=== PATIENT | male | born 1985 | race Caucasian/White ===

== ENCOUNTER 2021-05-17 08:00 | Outpatient (CLI) | payer BC ==
[2021-05-17 14:15] LABS: FECAL OCCULT BLOOD (FIT) NEGATIVE (NEGATIVE)
== END 2021-05-17 23:59 | disposition home or self-care (01) ==
LOC: LAB.S 08:00
PROVIDERS: ATTEND Physician Assistant
DX: R19.7 Diarrhea, unspecified (principal)
CPT/HCPCS: 81599; 82274; 87045; 87046; 87177; 87209; 87427; 87493

== ENCOUNTER 2021-05-17 10:47 | Outpatient (CLI) | payer BC ==
[2021-05-17 11:24] LABS: BASOPHILS # (AUTO) 0.1 10^3/uL (0.0-0.1); EOSINOPHILS # (AUTO) 0.1 10^3/uL (0.0-0.7); EOSINOPHILS % (AUTO) 1.8 %; HCT - HEMATOCRIT 47.2 % (42.0-52.0); LYMPHOCYTES # (AUTO) 2.3 10^3/uL (1.5-3.5); LYMPHOCYTES % (AUTO) 36.6 %; MEAN CORPUSCULAR HEMOGLOBIN 29.7 pg (27.0-31.0); MEAN CORPUSCULAR HGB CONC 33.9 g/dL (32.0-36.0); MEAN CORPUSCULAR VOLUME 87.6 fL (80.0-94.0); MONOCYTES # (AUTO) 0.5 10^3/uL (0.0-1.0); MONOCYTES % (AUTO) 7.4 %; NEUTROPHILS # (AUTO) 3.3 10^3/uL (1.5-6.6); NEUTROPHILS % (AUTO) 52.9 %; PLT - PLATELET COUNT 249 10^3/uL (130-450); RED BLOOD COUNT 5.39 10^6/uL (4.70-6.10); RED CELL DISTRIBUTION WIDTH 12.5 % (12.0-15.0); WHITE BLOOD COUNT 6.2 x10^3/uL (4.8-10.8)
[2021-05-17 11:41] LABS: ALBUMIN 4.4 g/dL (3.2-5.5); ALBUMIN/GLOBULIN RATIO 1.5 (1.0-2.2); ALKALINE PHOSPHATASE 55 IU/L (42-121); ALT ALANINE AMINOTRANSFERASE 55 IU/L (10-60); AST ASPARTATE AMINOTRANSFERASE 29 IU/L (10-42); BILIRUBIN,TOTAL 0.8 mg/dL (0.2-1.0); BUN - BLOOD UREA NITROGEN 14 mg/dL (6-20); CARBON DIOXIDE - CO2 26 mmol/L (21-32); CHLORIDE 102 mmol/L (101-111); CHOL/HDL RATIO 5.5 (<5.0); CHOLESTEROL 216 mg/dL; CREATININE 0.9 mg/dL (0.6-1.2); GFR - MDRD 97 (>89); GLUCOSE 100 mg/dL (70-100); HDL CHOLESTEROL 39 mg/dL; LDL CHOLESTEROL,CALCULATED 119 mg/dL; LDL/HDL RATIO 3.1 (<3.6); POTASSIUM 3.9 mmol/L (3.5-5.0); SODIUM 138 mmol/L (135-145); TOTAL PROTEIN 7.4 g/dL (6.7-8.2); TRIGLYCERIDES 291 mg/dL; VLDL CHOLESTEROL 58 mg/dL
[2021-05-17 14:18] LABS: ESTIMATED AVERAGE GLUCOSE 103 mg/dL (70-100); HEMOGLOBIN A1c% 5.2 % (4.27-6.07)
== END 2021-05-17 10:48 | disposition home or self-care (01) ==
LOC: LAB 10:47
PROVIDERS: ATTEND Physician Assistant
DX: E29.1 Testicular hypofunction (principal); E55.9 Vitamin D deficiency, unspecified; R89.9 Unspecified abnormal finding in specimens from other organs, systems and tissues; R19.7 Diarrhea, unspecified; F33.40 Major depressive disorder, recurrent, in remission, unspecified; Z79.899 Other long term (current) drug therapy
CPT/HCPCS: 36415; 80053; 80061; 82306; 83036; 83721; 85025

== ENCOUNTER 2021-05-31 11:07 | Outpatient (CLI) | payer BC | END 2021-05-31 11:08 | disposition home or self-care (01) | LOC: LAB 11:07 | PROVIDERS: ATTEND Physician Assistant | DX: E29.1 Testicular hypofunction (principal) | CPT/HCPCS: 36415; 84403 ==

== ENCOUNTER 2022-11-11 18:45 | Emergency (ER) | payer BC ==
--- OUTSIDE RECORDS SUMMARY | 2022-11-11 19:27 | EXTERNAL MEDICAL SUMMARY RPT | Continuity of Care Document ---
:1985 Author Organization [facility] Address [address] [place] [address] Phone Care Team Providers Name Role Phone Robert Navarrete Unavailable Unavailable Allergies No information. Encounters No information. Functional Status No information. Immunizations No information. Medications date description facility 2022-10-14 00:00 allopurinol 100 mg oral tablet [facility] [place] Problems No information. Procedures No information. Results/Labs No information. Social History No information. Vital Signs No information.
--- NOTE | 2022-11-11 21:35 | ED Physician Documentation ---
PD HPI UPPER EXT INJURY - Stated complaint Stated Complaint: LT HAND LAC - Chief complaint Chief Complaint: Laceration - History obtained from History obtained from: Patient - History of Present Illness Location: Left, Finger Type of injury: Laceration Where injury occurred: Home Timing - onset: Enter time (18:30) Timing - details: Abrupt onset Associated symptoms: No: Weakness, Numbness, Tingling, Swelling Recently seen: Not recently seen - Additonal information Additional information: presents with lacerations to his left thumb and pointer finger, sustained at home at approximately 6:30 PM today when he was splitting bamboo with a machete . He is left-hand dominant. He is UTD on tetanus (within 5 years). HPI from patient. Review of Systems Skin: reports: Laceration (s) Neurologic: denies: Focal weakness, Numbness PD PAST MEDICAL HISTORY - Past Medical History Past Medical History: No - Present Medications Home Medications: Ambulatory Orders Medication Instructions Recorded Confirmed No Known Home Medications 11/11/22 11/11/22 - Allergies Allergies/Adverse Reactions: Allergies Allergy/AdvReac Type Severity Reaction Status Date / Time No Known Drug Allergies Allergy Verified 11/11/22 19:03 - Living Situation Living Arrangement: reports: At home PD ED PE NORMAL - Vitals Vital signs reviewed: Yes - General General: Alert and oriented X 3, No acute distress - Neuro Neuro: No motor deficit (FROM and strength left thumb and left pointer finger, flexion and extension including with isolation of MCP, PIP, and DIP joints .), No sensory deficit PD ED PE EXPANDED - Extremities ALLIE UE/Hands Visual: 1 - laceration (1 cm length with adipose tissue visualized) 2 - laceration (1 cm length) Results - Vitals Vitals: Oxygen O2 Source Room air Procedures - Laceration (location) Finger left Length in cm: 1 (left thumb) Wound type: Linear, Into subcut fat, Clean Neurovascular status: Sensory intact, Motor intact, Vascular intact Tendon involvement: Tendon intact Anesthesia: Lidocaine 1% Wound preparation: Chlorhexadine, Irrigated copiously NS, Wound explored Skin layer closure: Nylon, Size #-0 - enter number (5-0) Other: Patient tolerated well, No complications, Neurovascular intact, Tetanus UTD Finger left Dorsal Length in cm: 1 (left pointer finger, 1 cm length) Wound type: Linear, Into subcut fat Neurovascular status: Sensory intact, Motor intact, Vascular intact Tendon involvement: Tendon intact Anesthesia: Lidocaine 1% Wound preparation: Chlorhexadine, Irrigated copiously NS Skin layer closure: Dermabond Other: Patient tolerated well, No complications, Neurovascular intact, Tetanus UTD PD Medical Decision Making - ED course Complexity details: reviewed results, re-evaluated patient, considered di fferential, d/w patient Departure - Departure Disposition: Home, Self Care Clinical Impression: Laceration Condition: Good Instructions: ED Laceration Ext Skin Glue, ED Laceration Ext Sutr Stap Tape Comments: Follow-up with your primary care provider in 7 to 10 days for removal of the stitches in the thumb. If you do not have a primary care provider or cannot arrange the appointment in that timeframe, you can follow-up in an urgent care or walk-in clinic or else return to the emergency department for removal of the stitches. Use the splint on your pointer finger for the next week to keep the finger still; this is to minimize the tension on the wound and minimize the likelihood of the wound opening back up. Discharge Date/Time: 11/12/22 01:43
[2022-11-11] MEDS ORDERED: LIDOCAINE 1% 2 ML VIAL SUBQ STA (22:08)
[2022-11-11] MEDS ORDERED: lidocaine 1% 20 ML MDV ONE (22:24)
[2022-11-12] MEDS ORDERED: BACITRACIN ZINC OINT 1 PACKET TOP STA ×2 (01:29→01:30)
[2022-11-12 01:43] VITALS: BP 133/64
== END 2022-11-12 01:43 | disposition home or self-care (01) ==
LOC: ED 18:45
DX: S61.012A Laceration without foreign body of left thumb without damage to nail, initial encounter (principal); S61.211A Laceration without foreign body of left index finger without damage to nail, initial encounter; W26.0XXA Contact with knife, initial encounter
CPT/HCPCS: 12001; 99282; A9270

== ENCOUNTER 2023-11-02 09:34 | Outpatient (CLI) | payer BC, OTHER ==
--- NOTE | 2023-11-03 08:01 | XRAY Report ---
PROCEDURE: Knee 3 View BILAT INDICATIONS: FALL ON AND FROM LADDER TECHNIQUE: 4 views of the knee(s) were acquired. COMPARISON: None. FINDINGS: Bones: There is a comminuted fracture in the lateral aspect of the patella. Fractures or dislocation s. No suspicious bony lesions. Soft tissues: Small knee joint effusion. No suspicious soft tissue calcifications or masses. IMPRESSION: 1. Comminuted patellar fracture. 2. Small knee joint effusion. Reviewed by: Ender Keith MD on 11/03/2023 7:59 AM PST Approved by: Ender Keith MD on 11/03/2023 7:59 AM [facility] Station ID: [id number]
--- NOTE | 2023-11-03 08:05 | XRAY Report ---
PROCEDURE: Tib/Fib RT INDICATIONS: FALL ON AND FROM LADDER TECHNIQUE: 2 views of the tibia and fibula were acquired. COMPARISON: None. FINDINGS: Bones: No fractures or dislocations. No suspicious bony lesions. Soft tissues: No suspicious soft tissue calcifications or masses. IMPRESSION: No acute bony abnormality. Reviewed by: Ender Keith MD on 11/03/2023 8:03 AM [facility] Approved by: Ender Keith MD on 11/03/2023 8:03 AM PST Station ID: [id number]
== END 2023-11-02 23:59 | disposition home or self-care (01) ==
LOC: DI.N 09:34
PROVIDERS: ATTEND Physician Assistant Medical
DX: S80.12XA Contusion of left lower leg, initial encounter (principal); S80.11XA Contusion of right lower leg, initial encounter; S82.04 Comminuted fracture of patella

== ENCOUNTER 2023-12-11 13:00 | Outpatient (CLI) | payer BC, OTHER ==
--- NOTE | 2023-12-11 15:56 | XRAY Report ---
PROCEDURE: Knee 3 View RT INDICATIONS: RIGHT PATELLA FRACTURE TECHNIQUE: 3 views of the knee(s) were acquired. COMPARISON: 11/02/2023 FINDINGS: Bones: Again noted is comminuted fractures involving lateral aspect of patella with slight lateral d isplacement at fracture site. No new fracture or dislocation. No patella subluxation. No suspicious b isa lesions. Soft tissues: Small knee joint effusion. No suspicious soft tissue calcifications or masses. IMPRESSION: Stable appearance of comminuted and minimally displaced fracture involving lateral aspect of patella. No new fracture or dislocation. Small joint effusion. Reviewed by: Carlyle Paz MD on 12/11/2023 3:55 PM PST Approved by: Carlyle Paz MD on 12/11/2023 3:55 PM PST Station ID: [id number]
== END 2023-12-11 23:59 | disposition home or self-care (01) ==
LOC: DI.WOS 13:00
PROVIDERS: ATTEND Orthopaedic Surgery
DX: S82.041D Displaced comminuted fracture of right patella, subsequent encounter for closed fracture with routine healing (principal); M25.461 Effusion, right knee

== ENCOUNTER 2024-01-10 08:15 | Outpatient (CLI) | payer OTHER, BC ==
--- NOTE | 2024-01-10 16:40 | XRAY Report ---
PROCEDURE: Knee 3 View RT INDICATIONS: RIGHT KNEE PATELLA FRACTURE TECHNIQUE: 3 views of the knee(s) were acquired. COMPARISON: 12/11/2020 FINDINGS: Bones: Similar appearance of comminuted and minimally displaced patellar fracture involving the late ral aspect.. No suspicious bony lesions. Soft tissues: No knee joint effusion. No suspicious soft tissue calcifications or masses. IMPRESSION: Similar appearance of comminuted and minimally displaced fracture involving the lateral aspect of the patella. Fracture lines are mildly less distinct, suggestive of healing. Reviewed by: Bebo Edmondson MD on 01/10/2024 4:38 PM PST Approved by: Bebo Edmondson MD on 01/10/2024 4:38 PM PST Station ID: [id number]
== END 2024-01-10 23:59 | disposition home or self-care (01) ==
LOC: DI.WOS 08:15
PROVIDERS: ATTEND Orthopaedic Surgery
DX: S82.041D Displaced comminuted fracture of right patella, subsequent encounter for closed fracture with routine healing (principal)

== ENCOUNTER 2024-02-25 07:40 | Outpatient (CLI) | payer OTHER, BC ==
--- NOTE | 2024-02-25 14:05 | XRAY Report ---
PROCEDURE: Knee 3 View RT INDICATIONS: RIGHT PATELLA FRACTURE TECHNIQUE: 3 views of the knee were acquired. COMPARISON: Right knee radiographs 11/02/2023, 12/11/2023 and 01/10/2024 FINDINGS: Bones: Mild progressive healing changes involving the comminuted minimally displaced intra-articular fracture of the lateral patella with unchanged alignment. Lucent fracture lines are still visualized . Soft tissues: No knee joint effusion. No suspicious soft tissue calcifications. IMPRESSION: Mild progressive healing changes involving the lateral patellar fracture. Reviewed by: Oleg Fraga MD on 02/25/2024 2:03 PM PDT Approved by: Oleg Fraga MD on 02/25/2024 2:03 PM PDT Station ID: [id number]
== END 2024-02-25 23:59 | disposition home or self-care (01) ==
LOC: DI.WOS 07:40
PROVIDERS: ATTEND Orthopaedic Surgery
DX: S82.041D Displaced comminuted fracture of right patella, subsequent encounter for closed fracture with routine healing (principal)